=== PATIENT | female | born 1995 | race Caucasian/White ===

== ENCOUNTER 2021-11-14 20:18 | Inpatient (IN) | payer BC, SELFPAY ==
[2021-11-14] VITALS (21 sets, daily range): BP systolic 117–140; BP diastolic 62–84; PULSE 66–109; RESP 16; TEMP 36.8; O2SAT 98; BMI 25.0
[2021-11-14 17:47] LABS: Hematocrit 34.2 % (33.0-51.0); Hemoglobin* 10.9 gm/dL (12.0-16.0); Mean Corpuscular HGB Conc 32 gm/dL (32-36); Mean Corpuscular Hemoglobin 24 pg (26-34); Mean Corpuscular Volume 76 fL (80-100); Platelet Count* 231 K/uL (140-440); Red Blood Count 4.48 m/uL (4.00-5.20); White Blood Count* 8.54 K/uL (4.50-11.00)
[2021-11-14 17:55] LABS: Slide Review Reflex No
[2021-11-14 17:59] LABS: Alanine Aminotransferase* 16 U/L (4-35); Aspartate Amino Transferase* 32 U/L (12-35); Blood Urea Nitrogen* 11 mg/dL (5-24)
[2021-11-14 18:15] LABS: Creatinine* 0.5 mg/dL (0.5-1.5); Estimated Glomerular Filt Rate 132 ml/min
[2021-11-14 18:16] LABS: Creatinine Urine 106.3 mg/dL; Total Protein Urine 8 mg/dL
--- NOTE | 2021-11-14 21:07 | PM.OBHPLI ---
OB - H&P: HPI Labor/Induction History of Present Illness Date Seen: 11/14/21 Chief Complaint: The patient is a 26 year old 3 para 1102 at 38 weeks gestation by 1st trimester US, who presents with elevated blood pressure readings in clinic. Chief complaint: Maternity : 3 Para: 2 Indications for induction: induced hypertension Narrative: Mary Good is a 26 year old female at 38 weeks based on first trimester US dating. Patient has a history of gestational hypertension and preeclampsia with prior pregnancies. she has been on 81 mg asa throughout this and has had normal BP readings until this afternoon. She has had no headaches, no vision changes, no RUQ pain or swelling. History of Present Dating criteria: based on 1st trimester US only care: good care Ultrasounds: normal 1st trimester US complications: gestational hypertension Medical complications: none Labs Blood type: A (-) negative Rubella: immune RPR/VDLR: nonreactive GBS status: positive HBsAG: negative Review of Systems Status of ROS: Reports: 10 or more systems reviewed and unremarkable except as noted in History and below Meds Home Medications and Allergies Home Medication Comments: vitamin Allergies/Adverse Reaction Comments: NKDA OB - H&P: Exam Physical Exam: Vital signs: Pulse BP Pulse Ox 100 128/79 98 11/14/21 20:25 11/14/21 20:25 11/14/21 16:54 Constitutional: Constitutional: no acute distress Routine HEENT Exam: Head: Present atraumatic Eye: Present PERRL Routine Neck Exam: Neck: Present normal inspection Routine Respiratory Exam: Respiratory: Present CTA bilaterally Routine Cardiovascular Exam: Cardiovascular: RRR Routine Abdominal Exam: Comments: Gravid, appropriate for gesational age, Vertex by anastasiya. EFW 7.5 pounds. Detailed Labor and Delivery Exam: Patient Gravid: yes Dilation (cm): 4 Effacement (%): 70 Cervix position: mid Consistency: medium Contraction intensity: Moderate Fetus (Single): Station: -1 Heart Rate Baseline: 150 Monitor Accelerations: Present Senior Graphic Designer Variability: Average (6-10) Routine Neurological Exam: Present alert, oriented X3 and CN II-XII intact Routine Psychiatric Exam: Present normal affect and normal thought process OB - Results Labs Labs: Short CBC 11/14/21 Range/Units 17:30 WBC 8.54 (4.50-11.00) K/uL Hgb 10.9 L (12.0-16.0) gm/dL Hct 34.2 (33.0-51.0) % Plt Count 231 (140-440) K/uL BMP 11/14/21 11/14/21 17:30 17:30 BUN 11 Creatinine 0.5 Liver Function 11/14/21 Range/Units 17:30 AST 32 (12-35) U/L ALT 16 (4-35) U/L OB - Problem Based A/P Additional Plan (1) Gestational [-induced] hypertension without significant proteinuria, third trimester: Status: Acute (2) Term : Status: Acute Plan 1. start Abx for GBS + 2. If continued cervical change, will continue expectant management, otherwise will plan pitocin with AROM once adequate antibiotics.
[2021-11-14] MEDS: AMPICILLIN 2 GM in 0.9 % SODIUM CHLORIDE Mini-bag 100 ML IVPB (21:32)
[2021-11-14] MEDS: LACTATED RINGERS 1000 ML 1,000 ML 125 ML IV (21:32)
[2021-11-14 21:55] LABS: SARS PCR* Negative SARS-CoV-2 (Negative)
[2021-11-15] VITALS (20 sets, daily range): BP systolic 112–147; BP diastolic 55–92; PULSE 62–91; RESP 16; TEMP 36.6–36.9; O2SAT 96–98
[2021-11-15] MEDS: AMPICILLIN 1 GM in 0.9 % SODIUM CHLORIDE Mini-bag 100 ML IVPB (01:31)
--- NOTE | 2021-11-15 03:30 | PM.OBPRCVD ---
Procedure Delivery date: 11/15/21 Procedure Done: Global Procedure Details: Stage 1: Mary is a 26 yo at 38 weeks who presented to clinic with elevated blood pressure readings and a history of preeclampsia in both prior pregnancies. She was observed for 4 hours with 2 additional elevated BP readings, but normal preeclampsia labs. She was rika and made cervical change from 2 cm in clinic at 1600 on 11/14/21 to 5 cm at 0125 11/15/21 when she underwent AROM with clear fluid. She was given IV antibiotics for GBS treatment. At the time of AROM, time her contractions became quite strong and closer together and she entered the birthing tub. She reached 10 cm at 0213 and was involuntarily pushing at 0215. Stage 2: at viable male was born in the OA position over an intact perineum at 0252. There was a loose nuchal cord which was reduced prior to delivery of the shoulders. Mom was unable to continue pushing at this point and shoulders did not deliver spontaneously so the posterior (left) arm was delivered and then infant was placed on mother's abdomen. Because of poor respiratory effort, cord was immediately double clamped and brought to the warmer. IV pitocin was started after delivery of the . Stage 3: An intact placenta with 3 vessel cord was delivered at 0310. There was a 1st degree periurethral tear which did not requiring suturing. EBL 50 mL, sponge counts were correct. Apgars 7 and 9 at 1 and 5 minutes respectively. Events: Gestational Hypertension and Labor Induction Delivery augmentation: rupture of membranes Delivery monitor: external FHT Route of delivery: (in birthing tub) Laceration description: Periurethral - 1st Degree Estimated blood loss (mL): 50 Anesthesia type: None Gender: Male presentation: vertex Placental Delivery Description: Spontaneous Cord Description: 3 Vessels, Nuchal Cord (reduced at perineum), Loose and Reduced
[2021-11-15] MEDS: ACETAMINOPHEN 500 MG TABLET 1000 MG PO ×3 (03:31→19:55)
[2021-11-15] MEDS: IBUPROFEN 600 MG TABLET PO ×3 (09:54→23:16)
[2021-11-15] MEDS: DOCUSATE SODIUM 100 MG CAPSULE PO (09:56)
[2021-11-16 06:41] LABS: Hemoglobin* 10.3 gm/dL (12.0-16.0)
[2021-11-16 08:52] VITALS: BP 127/79; PULSE 79; RESP 16; TEMP 36.5; O2SAT 98
--- NOTE | 2021-11-16 09:26 | P.DS_ITS ---
DS: Providers Provider Time Seen by Provider: 09:26 Date Seen: 11/16/21 Date of admission: 11/14/21 20:18 Primary care physician: Roxy Jules MD Admitting Clinician: Roxy Jules MD Attending Physician on discharge: Roxy Jules MD Date of Discharge: 11/16/21 DS: Diagnosis Discharge Diagnosis (1) Normal vaginal delivery: Status: Acute (2) Gestational [-induced] hypertension without significant proteinuria, third trimester: Status: Acute Exam Narrative: Exam Narrative: General: Well-appearing adult female. Alert oriented appropriate. No acute distress. Head: Normocephalic. Atraumatic HEENT: EOMI. No conjunctival injection. Mucous membranes moist. Neck: Supple. Cardiovascular: Regular rate and rhythm. No rubs, murmurs or extra heart sounds. Pulmonary: Clear to auscultation bilaterally. No wheezes, rales or rhonchi. Abdomen: Soft, nontender. Uterine fundus palpated at the level the umbilicus. No masses or organomegaly. Normoactive bowel sounds. Extremities: Warm and well perfused. No lower extremity edema. No calf tenderness. Skin: No rashes appreciated over exposed skin. Neuro: Grossly normal strength and sensation. No focal deficits. Psych: Normal affect. Const: Vital Signs, click to edit/add: Vital Signs - 24 hr 11/15/21 09:47 11/15/21 12:32 11/15/21 15:58 Temperature 98.3 F 98 F 98.5 F Pulse Rate [Pulse Oximeter] 77 73 Respiratory Rate 16 16 16 Blood Pressure [Le ft Arm] 122/72 127/73 136/92 H Pulse Oximetry 96 97 98 Oxygen Delivery Me thod Room Air Room Air Room Air 11/15/21 20:11 11/15/21 23:10 11/16/21 08:52 Temperature 97.8 F 98.3 F 97.7 F Pulse Rate [Pulse Oximeter] 63 70 79 Respiratory Rate 16 16 16 Blood Pressure [Le ft Arm] 122/78 114/73 127/79 Pulse Oximetry 98 96 98 Oxygen Delivery Me thod Room Air Room Air Room Air OB - DS: Summary Hospital Course Hospital Course: The patient is a 26 year old G 3 P1102 at 38+0 weeks gestation that was admitted to the Center on 11/14/21 for IOL for gestational hypertension. History of pre-eclampsia and gestational hypertension in prior pregnancies. Found to have elevated BP in clinic. Several additional elevated BPs on admission, non severe range. Labs were normal. She had an uncomplicated vaginal delivery. She delivered a viable male infant. She is breast feeding. the patient has done well. Blood pressures have been normal. Peripartum Data delivery method: Vaginal Laceration description: Perineal - 1st Degree (not repaired) complications: none [place] Gender: Male A Gender: Male Discharge Plan: Home Status at Discharge Functional status at discharge: independent ambulation Overall status at discharge: patient is back to baseline Time Spent with Patient Time attestation: Total time spent providing and/or coordinating discharge services: Time spent: Less than 30 minutes Discharge Plan Discharge Disposition: Home, Self-Care Date of Admission: 11/14/21 20:18 Attending Provider on Discharge: Sushma Gmaez Primary Care Provider: Provider,Not a Local Condition: Stable Anticipated Discharge Date/Time: 11/16/21 09:12 Discharge Medications: New acetaminophen 500 mg Tablet 1,000 mg PO Q6H PRN (Reason: pain) Qty: 30 0RF docusate sodium 100 mg Capsule 100 mg PO DAILY Qty: 30 0RF ibuprofen 600 mg Tablet 600 mg PO Q6H PRNQty: 30 0RF Discharge Orders: Discharge Order (Routine); Ordered 11/16/21 Ordered By: Sushma Gamez Patient Education: OB Over the Counter Medication Information, OB Vaginal/Bottle Feeding Activity Level: Activity as Tolerated Discharge Diet: Regular Follow Up Appointments: Provider,Not a Local [Primary Care Provider] - Forms: [facility] [employer] Info Instructions Discharge Comment: Follow-up for 6 weeks pp visit with Dr. Jules
== END 2021-11-16 10:15 | disposition home or self-care (01) | DRG 560 ==
LOC: OB OUT 20:19 → OB 20:19
PROVIDERS: Admitting Provider Family Medicine; Visit Provider Family Medicine
DX: O13.4 Gestational [pregnancy-induced] hypertension without significant proteinuria, complicating childbirth (principal); O99.824 Streptococcus B carrier state complicating childbirth; Z3A.38 38 weeks gestation of pregnancy; O71.82 Other specified trauma to perineum and vulva; Z37.0 Single live birth
CPT/HCPCS: 36415; 82565; 82570; 84156; 84450; 84460; 84520; 85018; 85027; 87635; A9270; J0290; J7120

== ENCOUNTER 2023-09-30 11:22 | Inpatient (IN) | payer BC, SELFPAY ==
[2023-09-30] VITALS (55 sets, daily range): BP systolic 113–155; BP diastolic 55–89; PULSE 68–108; TEMP 36.9; O2SAT 97–98; BMI 24.7
[2023-09-30 11:48] LABS: Hematocrit 37.5 % (33.0-51.0); Hemoglobin* 12.5 gm/dL (12.0-16.0); Mean Corpuscular HGB Conc 33 gm/dL (32-36); Mean Corpuscular Hemoglobin 29 pg (26-34); Mean Corpuscular Volume 85 fL (80-100); Platelet Count* 236 K/uL (140-440); Red Blood Count 4.39 m/uL (4.00-5.20); White Blood Count* 8.45 K/uL (4.50-11.00)
[2023-09-30 11:49] LABS: Slide Review Reflex No
[2023-09-30] MEDS: ACETAMINOPHEN 500 MG TABLET 1000 MG PO ×2 (11:58→23:55)
[2023-09-30] MEDS: guaiFENesin 100 MG/ML CUP PO ×3 (11:58→22:13)
[2023-09-30 12:01] LABS: Creatinine* 0.4 mg/dL (0.5-1.5); Est. Creatinine Clearance* 194.27; Estimated Glomerular Filt Rate 137 ml/min
[2023-09-30 12:02] LABS: Alanine Aminotransferase* 30 U/L (4-35); Aspartate Amino Transferase* 47 U/L (12-35); Blood Urea Nitrogen* 6 mg/dL (5-24)
[2023-09-30 12:03] LABS: Creatinine Urine 59.8 mg/dL; Protein Creatinine Ratio Urine 0.35 (0-0.19); Total Protein Urine 21 mg/dL
--- NOTE | 2023-09-30 13:31 | P.OBHP_ITS ---
OB - H&P: HPI Labor/Induction History of Present Illness Date Seen: 09/30/23 Chief Complaint: The patient is a 28 year old 6 para 211 at 38+1 weeks gestation by 6 week US, who presents for IOL for mild preeclampsia. Chief complaint: Maternity Narrative: Mary Good is a 28 year old at 38+1 weeks by 6 week US who presents for IOL for mild preeclampsia. She has a history of preeclampsia with first 2 pregnancies, gestational HTN with 3rd. She also has chronic migraines which did not respond to magnesium, so has been on labetalol for migraine prophylaxis throughout . She presented to clinic yesterday for routine OB visit and reported a home BP of 140/90, but repeat in clinic was normal. She also had a headache, but unsure if that was related to cough from URI. Pre-e labs completed and were notable for AST of 55 and prot:creat 0.2 (previously both normal). Home BP readings last night adn this morning above 140/90 x2 so decision made for IOL. Her headache is better, she is not having contractions or leaking fluid. She does have left sided rib pain after a particularly bad coughing spell last night. History of Present Dating criteria: based on 1st trimester US only care: none Ultrasounds: normal 1st trimester US and normal mid trimester US complications: preeclampsia Medical complications: other (migraines) Labs Blood type: A (-) negative Rubella: immune RPR/VDLR: nonreactive GBS status: positive HBsAG: negative Review of Systems Status of ROS: Reports: 10 or more systems reviewed and unremarkable except as noted in History and below Meds Home Medications and Allergies Allergies Allergy/AdvReac Type Severity Reaction Status Date / Time No Known Drug Allergies Allergy Verified 11/14/21 21:25 OB - H&P: Exam Physical Exam: Vital signs: Pulse BP 93 128/76 09/30/23 13:30 09/30/23 13:30 Constitutional: Constitutional: no acute distress Routine HEENT Exam: Head: Present atraumatic Eye: Present EOMI and PERRL ENT: Present mucous membranes moist Routine Neck Exam: Neck: Present full ROM Routine Respiratory Exam: Respiratory: Present CTA bilaterally Routine Cardiovascular Exam: Cardiovascular: RRR Routine Abdominal Exam: Comments: Gravid, nontender Detailed Labor and Delivery Exam: Patient Gravid: Yes Dilation (cm): 3 Effacement (%): 50 Cervix position: mid Consistency: medium Cervical ripeness score: 5 Fetus (Single): Station: -3 Amniotic Membrane Status: intact Heart Rate Baseline: 140 Monitor Accelerations: Present Monitor Decelerations: None Rodent Exterminator Variability: Moderate (6-25) Routine Back/Spine/Pelvis Exam: Back/Spine: full ROM Routine Skin Exam: Present intact Routine Neurological Exam: Present alert, oriented X3 and CN II-XII intact Routine Psychiatric Exam: Present normal affect and normal thought process OB - Results Labs Labs: Short CBC 09/30/23 Range/Units 11:40 WBC 8.45 (4.50-11.00) K/uL Hgb 12.5 (12.0-16.0) gm/dL Hct 37.5 (33.0-51.0) % Plt Count 236 (140-440) K/uL BMP 09/30/23 11:40 BUN 6 Creatinine 0.4 L Liver Function 09/30/23 Range/Units 11:40 AST 47 H (12-35) U/L ALT 30 (4-35) U/L OB - Problem Based A/P Additional Plan (1) Term : Status: Acute (2) Preeclampsia: Status: Acute Plan 1. 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 2. Cytotec with AROM once able. 3. Abx for +GBS 4. Scheduled Q6 hour labs to monitor for severe features. 5. Analgesia per patient request. 6. Anticipate . Delivery/Labor/Induction Plan Plan: induction Induction method: per misoprostol protocol
[2023-09-30] MEDS: AMPICILLIN 2 GM in 0.9 % SODIUM CHLORIDE Mini-bag 100 ML IVPB (14:20)
[2023-09-30] MEDS: LACTATED RINGERS 1000 ML 1,000 ML 125 ML IV (14:21)
[2023-09-30] MEDS: miSOPROStoL 25 MCG/0.25 TABLET VAGINAL (14:27)
[2023-09-30 17:24] LABS: Hemoglobin* 12.6 gm/dL (12.0-16.0); Mean Corpuscular HGB Conc 32 gm/dL (32-36); Mean Corpuscular Hemoglobin 28 pg (26-34); Mean Corpuscular Volume 87 fL (80-100); Platelet Count* 223 K/uL (140-440); Red Blood Count 4.51 m/uL (4.00-5.20); White Blood Count* 6.49 K/uL (4.50-11.00)
[2023-09-30 17:29] LABS: Slide Review Reflex No
[2023-09-30 17:36] LABS: Alanine Aminotransferase* 31 U/L (4-35); Aspartate Amino Transferase* 55 U/L (12-35); Blood Urea Nitrogen* 8 mg/dL (5-24); Creatinine* 0.5 mg/dL (0.5-1.5); Est. Creatinine Clearance* 155.42; Estimated Glomerular Filt Rate 130 ml/min
[2023-09-30] MEDS: AMPICILLIN 1 GM in 0.9 % SODIUM CHLORIDE Mini-bag 100 ML IVPB (18:18)
[2023-09-30] MEDS: BUPIVACAINE 0.25% PF 10 ML 10 ML ML EPIDURAL (18:45)
[2023-09-30] MEDS: ROPIVACAINE 0.2% 100 ml 100 ML 12 MG EPIDURAL (19:00)
--- NOTE | 2023-09-30 19:22 | P.ANBPRC_ITS ---
[facility] Medical History (Updated 09/30/23 @ 13:32 by Roxy Jules MD) Term ?Z34.90 - Encounter for supervision of normal , unspecified, unspecified trimester (ICD-10) Migraine ?G43.909 - Migraine, unspecified, not intractable, without status migrainosus (ICD-10) Social History What is your current living situation?: I presently have a place to live Problems where you live: no known problems In the past 12 months, utilities in danger of being shut off: no In past 12 months, lack of transportation kept you from medical appts, meetings, work, or getting things needed for daily living: no In the past 12 mos, have been you worried that your food would run out before you had money to buy more?: never true In the past 12 mos, the food you bought just didn't last and you didn't have mon ey to buy more?: never true Smoking Status: Never smoker How often does anyone, including family, friends and others, physically hurt you : never How often does anyone, including family, friends and others, insult or talk down to you: never How often does anyone, including family, friends and others, threaten you with harm: never How often does anyone, including family, friends and others, scream or curse at you: never Meds Home Medications and Allergies Home Medications ?Medication ?Instructions ?Recorded ?Confirmed ?Type aspirin 81 mg chewable tablet 81 mg PO DAILY 09/30/23 09/30/23 History (Sania Chewable Low Dose Aspirin) labetalol 200 mg tablet 200 mg PO BID 09/30/23 09/30/23 History Allergies Allergy/AdvReac Type Severity Reaction Status Date / Time No Known Drug Allergies Allergy Verified 09/30/23 16:05 Results Labs Labs: Laboratory Results - last 24 hr 09/30/23 09/30/23 11:40 17:15 WBC 8.45 6.49 RBC 4.39 4.51 Hgb 12.5 12.6 Hct 37.5 39.0 MCV 85 87 MCH 29 28 MCHC 33 32 Plt Count 236 223 BUN 6 8 Creatinine 0.4 L 0.5 Estimated Creat Clear 194.27 155.42 Estimated GFR 137 130 AST 47 H 55 H ALT 30 31 Urine Creatinine 59.8 Protein/Creatinin Ratio 0.35 H Urine Total Protein 21 Vital Signs Vital Signs: Last Vital Signs Temp 98.4 F 09/30/23 15:18 Pulse 76 09/30/23 19:21 BP 122/60 09/30/23 19:21 Weight: 69.4 kg Height: 167.64 cm Anesthesia Procedures Epidural Insertion Patient Location: OB Start Time: 18:30 Stop Time: 19:15 Start Date: 09/30/23 Stop Date: 09/30/23 Reason for Block: procedure for pain Patient Position: sitting Performed By: Ariadna Medley Preanesthetic Checklist: IV checked, risks and benefits discussed, monitors and equipment checked, timeout performed and anesthesia consent Prep: chlorhexidine gluconate Monitoring: blood pressure monitoring, continuous pulse oximetry and heart rate Approach: midline Vertebral Space: lumbar (1-5) Epidural Technique: TAN saline Needle Type: Tuohy needle Injection Technique: continuous catheter Needle gauge: 17 Needle Length (cm): 10 cm Needle Insertion Depth (cm): 6 Catheter Gauge: 19 Catheter Type: multi-orifice Catheter at skin depth (cm): 12 Test Dose Result: negative and lidocaine 1.5% with epinephrine 1 to 200,000
--- NOTE | 2023-09-30 19:34 | PM.OBPNL ---
Subjective Date Seen: 09/30/23 Narrative: Mary is a at 38+1 who is undergoing IOL for preeclampsia. She has had one dose of cytotec and contractions are now every 1-4 minutes. She was feeling pelvic pressure as well as ongoing left rib pain from a coughing injury and requested an epidural. she now has good pain relief, is intermittently feeling pelvic pressure with contractions. Objective Vital Signs: Last Vital Signs Temp 98.4 F 09/30/23 15:18 Pulse 85 09/30/23 19:25 BP 124/72 09/30/23 19:25 Pelvic Exam Dilation (cm): 5 Effacement (%): 80 Station: -2 Contractions Monitor mode: External Contraction Frequency: Q2-4 hours Contraction pattern: Regular Contraction intensity: Moderate Assessment Station: -3 Heart Rate Baseline: 140 Monitor Accelerations: Present Monitor Decelerations: None Plan Plan: 1. Patient underwent AROM with clear fluid. Will continue expectant management given good cervical change and good contraction pattern. 2. BP adequately controlled, ALT did increase from 47 to 55, will continue to monitor preeclampsia labs Q6 hours. 3. Epidural for pain control. 4. Anticipate .
[2023-09-30] MEDS: OXYTOCIN 30 unit/500 ML in NS 30 UNIT/500 ML BAG 300 UNIT IVPB (21:35)
--- NOTE | 2023-09-30 21:51 | W.PM.VAGD1_ITS ---
Procedure Delivery date: 09/30/23 Procedure Done: Global Events: Pre-Eclampsia Delivery augmentation: rupture of membranes Delivery monitor: external FHT Route of delivery: Laceration description: None Anesthesia type: Epidural Disposition: floor Narrative: The patient is a 28 year-old admitted on 09/30/2023 at 38 Weeks, 1 Days gestation for preeclampsia.? Cervical exam on admission was 2 cm/50 % effaced/-3 station with membranes intact in vertex presentation.? Contractions were rare.? heart rate demonstrated baseline 140 bpm with moderate variability, + accelerations, - decelerations; a category 1 tracing.?One dose of cytotec was given at 1430. AROM occurred at 1920 with clear fluid. ? Labor Analgesia:? epidural ? Pitocin:? post delivery ? Labor onset:? 1920 ? Complete:? 2056 ? Pushing:? 2099 ? heart tones during second stage were category 1. ? At 2131 a viable female infant delivered in vertex OA presentation over intact perineum via spontaneous vaginal delivery.? was placed on maternal abdomen.? Cord was clamped and cut after a 30-60 second delay.? Nose and mouth were bulb suctioned.? Infant weight pending.? 9 at 1 minute and 9 at 5 minutes.? Shoulder dystocia: no.? Nuchal cord: yes x1 tight. ? Placenta delivered spontaneously and complete at 2137 with a 3 vessel cord. ? Mother and were stable after delivery. ? Lacerations:? none. ? Blood loss: 100 mL. Blood loss measurement type: QBL ? Sponge and needles counts are correct. [place] Infant Infant Gender: Female presentation: vertex Placental Delivery Description: Spontaneous Cord Description: 3 Vessels, Nuchal Cord and Tight
[2023-09-30] MEDS: IBUPROFEN 600 MG TABLET PO (22:53)
[2023-09-30] MEDS: LABETALOL HCL 100 MG TABLET 200 MG PO (22:54)
[2023-09-30 23:39] LABS: Hematocrit 37.5 % (33.0-51.0); Hemoglobin* 12.2 gm/dL (12.0-16.0); Mean Corpuscular HGB Conc 33 gm/dL (32-36); Mean Corpuscular Hemoglobin 28 pg (26-34); Mean Corpuscular Volume 87 fL (80-100); Platelet Count* 223 K/uL (140-440); Red Blood Count 4.33 m/uL (4.00-5.20); White Blood Count* 11.16 K/uL (4.50-11.00)
[2023-09-30 23:40] LABS: Slide Review Reflex No
[2023-10-01 00:08] LABS: Alanine Aminotransferase* 30 U/L (4-35); Aspartate Amino Transferase* 54 U/L (12-35); Blood Urea Nitrogen* 9 mg/dL (5-24); Creatinine* 0.5 mg/dL (0.5-1.5); Est. Creatinine Clearance* 155.42; Estimated Glomerular Filt Rate 130 ml/min
[2023-10-01 01:51] VITALS: BP 112/67; PULSE 82; RESP 16; TEMP 36.7; O2SAT 98
[2023-10-01] MEDS: IBUPROFEN 600 MG TABLET PO ×3 (06:22→18:00)
[2023-10-01] MEDS: guaiFENesin 100 MG/ML CUP PO ×5 (06:22→21:35)
[2023-10-01 06:23] VITALS: BP 118/64; PULSE 69; RESP 16; TEMP 36.6; O2SAT 98
[2023-10-01 06:30] LABS: Hematocrit 35.4 % (33.0-51.0); Hemoglobin* 11.7 gm/dL (12.0-16.0); Mean Corpuscular HGB Conc 33 gm/dL (32-36); Mean Corpuscular Hemoglobin 28 pg (26-34); Mean Corpuscular Volume 86 fL (80-100); Platelet Count* 205 K/uL (140-440); Red Blood Count 4.14 m/uL (4.00-5.20); White Blood Count* 9.24 K/uL (4.50-11.00)
[2023-10-01 06:34] LABS: Slide Review Reflex No
[2023-10-01 06:41] LABS: Alanine Aminotransferase* 27 U/L (4-35); Aspartate Amino Transferase* 46 U/L (12-35); Blood Urea Nitrogen* 5 mg/dL (5-24); Creatinine* 0.4 mg/dL (0.5-1.5); Est. Creatinine Clearance* 194.27; Estimated Glomerular Filt Rate 137 ml/min
--- NOTE | 2023-10-01 07:11 | PM.OBPNVD1 ---
OB - PN:Subj Subjective Date Seen: 10/01/23 Narrative: Patient seen today on PP day 0. Doing overall well. Noted headache this morning. Similar to migraine history. Continues to have significant left chest wall/rib pain. Pain under control with ibuprofen. Lochia decreasing. Ambulating. Tolerating diet. Normal urination. going well. Baby doing well. OB - PN: Obj Exam Physical Exam: Vital signs: Temp Pulse Resp BP Pulse Ox O2 Del Method 97.9 F 69 16 118/64 98 Room Air 10/01/23 06:23 10/01/23 06:23 10/01/23 06:23 10/01/23 06:23 10/01/23 06:23 10/01/23 06:23 Narrative: Gen: NAD Ext: Warm, dry Mood: Appropriate OB - PN: Obj Data Labs Labs: Laboratory Results - last 24 hr 09/30/23 09/30/23 09/30/23 11:40 17:15 23:30 WBC 8.45 6.49 11.16 H RBC 4.39 4.51 4.33 Hgb 12.5 12.6 12.2 Hct 37.5 39.0 37.5 MCV 85 87 87 MCH 29 28 28 MCHC 33 32 33 Plt Count 236 223 223 BUN 6 8 9 Creatinine 0.4 L 0.5 0.5 Estimated Creat Clear 194.27 155.42 155.42 Estimated GFR 137 130 130 AST 47 H 55 H 54 H ALT 30 31 30 Urine Creatinine 59.8 Protein/Creatinin Ratio 0.35 H Urine Total Protein 10/01/23 06:05 WBC 9.24 RBC 4.14 Hgb 11.7 L Hct 35.4 MCV 86 MCH 28 MCHC 33 Plt Count 205 BUN 5 Creatinine 0.4 L Estimated Creat Clear 194.27 Estimated GFR 137 AST 46 H ALT 27 Urine Creatinine Protein/Creatinin Ratio Urine Total Protein OB - PN: A/P Delivery Assessment and Plan (1) Preeclampsia: Problem details: Blood pressures stable, on labetalol. Labs improving. Headache on 09/30 though similar to h/o migraines Status: Acute (2) Normal vaginal delivery: Status: Acute Plan Comments: PPD#0 s/p uncomplicated , doing well. Preeclampsia, not requiring Mg or medications Plan: -- Preeclampsia, monitor blood pressure. Headache present. -- Rib pain, recommend binder and lidocaine patch, may benefit from routine NSAIDs or Tylenol -- Continue current cares. -- Encourage ambulation. -- Take Vitamins while . -- Stool softener prn for constipation prophylaxis. -- Anticipate discharge to home in 1-2 days.
[2023-10-01 07:52] VITALS: BP 115/72; PULSE 62; RESP 16; TEMP 36.8; O2SAT 98
[2023-10-01] MEDS: DOCUSATE SODIUM 100 MG CAPSULE PO (07:57)
[2023-10-01] MEDS: LABETALOL HCL 100 MG TABLET 200 MG PO ×2 (07:57→21:18)
[2023-10-01] MEDS: ACETAMINOPHEN 500 MG TABLET 1000 MG PO ×3 (07:57→21:18)
[2023-10-01] MEDS: LIDOCAINE 5% PATCH 1 PATCH TRANSDERMA (08:23)
[2023-10-01 11:44] LABS: Hematocrit 34.7 % (33.0-51.0); Hemoglobin* 11.5 gm/dL (12.0-16.0); Mean Corpuscular HGB Conc 33 gm/dL (32-36); Mean Corpuscular Hemoglobin 29 pg (26-34); Mean Corpuscular Volume 86 fL (80-100); Platelet Count* 198 K/uL (140-440); Red Blood Count 4.02 m/uL (4.00-5.20); White Blood Count* 8.04 K/uL (4.50-11.00)
[2023-10-01 11:49] LABS: Slide Review Reflex No
[2023-10-01 11:59] LABS: Alanine Aminotransferase* 28 U/L (4-35); Aspartate Amino Transferase* 45 U/L (12-35); Creatinine* 0.5 mg/dL (0.5-1.5); Est. Creatinine Clearance* 155.42; Estimated Glomerular Filt Rate 130 ml/min
[2023-10-01 12:00] LABS: Blood Urea Nitrogen* 5 mg/dL (5-24)
--- NOTE | 2023-10-01 13:00 | PM.ANPOST ---
Post Anesthesia Note Post Anesthesia Note Patient seen: Inpatient Respiratory Status: adequate Cardiovascular Status: adequate Mental Status: baseline Pain: adequate Temp: baseline Anesthetic awareness: N/A Complications: none Follow care: none
[2023-10-01 13:23] VITALS: BP 108/66; PULSE 75; RESP 16; TEMP 36.3; O2SAT 98
[2023-10-01 17:08] VITALS: BP 111/71; PULSE 72; RESP 16; TEMP 36.6; O2SAT 98
[2023-10-01 21:11] VITALS: BP 116/73; PULSE 70; RESP 18; TEMP 36.6; O2SAT 97
[2023-10-01] MEDS: OXYCODONE 5 MG TABLET PO (21:40)
[2023-10-01] MEDS: SODIUM CHLORIDE 0.9 % (FLUSH) 10 ML SYRINGE IVF (22:44)
[2023-10-01] MEDS: ONDANSETRON 2 MG/ML inj 4 MG IV (22:44)
[2023-10-02 01:04] VITALS: BP 124/74; PULSE 59; RESP 20; O2SAT 98
[2023-10-02] MEDS: guaiFENesin 100 MG/ML CUP PO ×4 (01:06→17:05)
[2023-10-02] MEDS: IBUPROFEN 600 MG TABLET PO ×3 (01:07→15:47)
[2023-10-02] MEDS: OXYCODONE 5 MG TABLET PO (01:07)
[2023-10-02] MEDS: ONDANSETRON 2 MG/ML inj 4 MG IV ×2 (01:56→08:45)
[2023-10-02 06:01] VITALS: BP 108/66; PULSE 66; RESP 18; TEMP 36.4; O2SAT 96
[2023-10-02] MEDS: ACETAMINOPHEN 500 MG TABLET 1000 MG PO ×2 (06:04→14:01)
[2023-10-02 08:27] VITALS: BP 120/78
[2023-10-02] MEDS: DOCUSATE SODIUM 100 MG CAPSULE PO (08:28)
[2023-10-02] MEDS: LABETALOL HCL 100 MG TABLET 200 MG PO (08:29)
[2023-10-02] MEDS: LIDOCAINE 5% PATCH 1 PATCH TRANSDERMA (08:43)
--- NOTE | 2023-10-02 08:45 | PM.OBDSVD1 ---
DS: Providers Provider Date Seen: 10/02/23 Date of admission: 09/30/23 11:22 Primary care physician: Roxy Jules MD Admitting Clinician: Roxy Jules MD Attending Physician on discharge: Roxy Jules MD Exam Narrative: Exam Narrative: Gen: No acute distress CV: Regular rate and rhythm, normal S1,S2, no murmurs Resp: Normal rate and effort, clear to auscultation bilaterally, shallow breaths. MSK: Left lower ribs tender on light exam Ext: Warm, dry, 2+ pedal pulses, mild edema bilaterally. Calves non-tender to palpation. Const: Vital Signs, click to edit/add: Vital Signs - 24 hr 10/01/23 13:23 10/01/23 17:08 10/01/23 21:11 Temperature 97.4 F L 97.9 F 97.9 F Pulse Rate [Left B lood Pressure Cuff ] 75 72 70 Respiratory Rate 16 16 18 Blood Pressure [Le ft Arm] 108/66 111/71 116/73 Pulse Oximetry 98 98 97 Oxygen Delivery Me thod Room Air Room Air Room Air 10/02/23 01:04 10/02/23 06:01 10/02/23 08:27 Temperature 97.6 F Pulse Rate [Left B lood Pressure Cuff ] 59 L 66 Respiratory Rate 20 18 Blood Pressure [Le ft Arm] 124/74 108/66 120/78 Pulse Oximetry 98 96 Oxygen Delivery Me thod Room Air Room Air OB - DS: Summary Hospital Course Hospital Course: The patient is a 28 year-old admitted on 09/30/2023 at 38 Weeks, 1 Days gestation for preeclampsia.? She had an uncomplicated vaginal delivery. She delivered a viable female infant. She is breast feeding. Blood pressures have been normal . She is on labetalol and did not receive magnesium during her hospitalization. has been complicated by rib pain secondary to a recent viral URI. XR performed on 10/01 to rule out pneumonia. She will be discharged with pain plan to include twice daily naproxen, tylenol every 6 hours, and flexeril as needed. She can use OTC Salonpas, compression wraps, ice/heat. She was provided with an incentive spirometer to prevent atelectasis. Discussed that rib injuries can take several weeks to heal. Peripartum Data delivery method: Vaginal [place] Gender: Female Status at Discharge Functional status at discharge: independent ambulation Overall status at discharge: patient is progressing back to baseline Time Spent with Patient Time attestation: Total time spent providing and/or coordinating discharge services: Discharge Plan Discharge Disposition: Home, Self-Care Date of Admission: 09/30/23 11:22 Primary Care Provider: Roxy Jules Condition: Stable Anticipated Discharge Date/Time: 10/02/23 12:00 Discharge Medications: New naproxen 500 mg tablet 500 mg PO BID Qty: 28 2RF Rx Instructions: Take twice daily for 1 week, then can take as needed. cyclobenzaprine 5 mg tablet 5 mg PO TID PRN (Reason: muscle spasm) Qty: 14 1RF Continued labetalol 200 mg tablet 200 mg PO BID acetaminophen 500 mg Tablet 1,000 mg PO Q6H PRN (Reason: pain) Qty: 30 0RF Discontinued aspirin [Sania Chewable Aspirin] 81 mg tablet,chewable 81 mg PO DAILY ibuprofen 600 mg Tablet 600 mg PO Q6H PRNQty: 30 0RF Discharge Orders: Discharge Order (Routine); Ordered 10/02/23 Ordered By: Licha Swenson Patient Education: Preeclampsia During (DC), OB Care, OB Over the Counter Medication Information, OB Vaginal/Breast Feeding Additional Instructions: Rib pain plan: Recommend naproxen 500mg twice daily for 1-2 weeks; tylenol 1000mg every 6 hours for 1-2 weeks and flexeril 5mg three times daily as needed. Flexeril may make you sleepy but can help relax the muscles. Incentive spirometry with every feed to help prevent atelectasis and pneumonia. This helps to expand your lungs. Ok to use honey, cough drops and Robitussin while . Other cough suppressants can decrease milk supply and Tessalon can be dangerous. Jtca-qtl-brbydnu lidocaine patches like Salonpas may be helpful. You can try wearing a binder. Follow-up in 2-3 weeks as you may benefit from physical therapy. Activity Level: Activity as Tolerated Follow Up Appointments: Roxy Jules MD [Primary Care Provider] - Forms: [employer] Info Instructions DS:Data Additional Comments Additional comments: - Preeclampsia. Monitor blood pressures at home. Return to center if blood pressure >160/110 or develop a new headache, edema or RUQ pain. - Rib pain. Recommend naproxen 500mg twice daily, tylenol 1000mg every 6 hours and flexeril 5mg TID as needed. Incentive spirometry. Ok to use honey, cough drops and Robitussin while . Other cough suppressants can decrease milk supply and Tessalon can be dangerous. - Pelvic rest for 6 weeks (no intercourse, tampons or douching), or until one week after vaginal bleeding stops. - Daily activities for the first week should be limited to taking care of patient and her baby, and only as tolerated. - Call MD if fever > 100.4 degrees, bleeding more than 1 pad / hour, foul-smelling discharge, passage of golf-ball sized blood clots, or worsening of pain not controlled by medications. - Counseled on signs of post- depression
--- NOTE | 2023-10-02 09:14 | CRLHL7_ITS ---
For Patients: As a result of the Cures Act, medical imaging exams and procedure reports are released immediately into your electronic medical record. You may view this report before your referring provider. If you have questions, please contact your health care provider. INDICATION: Rib pain, recent URI TECHNIQUE: Chest 2 views. COMPARISON: None. FINDINGS: The heart is normal in size. The pulmonary vasculature is within normal limits. The lungs are clear without focal consolidation, pleural effusion or pneumothorax. There is questionable cortical step-off of a lateral left rib, approximate 9th rib. IMPRESSION: Questioned cortical step-off of the lateral approximate left 9th rib. Recommend correlation with point tenderness to exclude fracture. Otherwise no acute cardiopulmonary process. Dictated by Rosana Lovett MD @ 10/02/2023 9:56:36 AM (Electronically Signed)
[2023-10-02 10:54] VITALS: BP 115/70; PULSE 72; RESP 16; TEMP 36.6; O2SAT 96
[2023-10-02 15:08] VITALS: BP 113/68; PULSE 83; RESP 16; TEMP 36.9; O2SAT 96
[2023-10-02 22:01] LABS: Rapid Plasma Reagin (RPR) Non Reactive (Non Reactive)
== END 2023-10-02 18:15 | disposition home or self-care (01) | DRG 560 ==
PROVIDERS: Admitting Provider Family Medicine; PCP Family Medicine; Visit Provider Family Medicine
DX: O14.04 Mild to moderate pre-eclampsia, complicating childbirth (principal); O26.893 Other specified pregnancy related conditions, third trimester; Z67.11 Type A blood, Rh negative; O99.824 Streptococcus B carrier state complicating childbirth; G43.909 Migraine, unspecified, not intractable, without status migrainosus; O99.52 Diseases of the respiratory system complicating childbirth; R07.81 Pleurodynia; J06.9 Acute upper respiratory infection, unspecified; Z3A.38 38 weeks gestation of pregnancy; Z37.0 Single live birth
CPT/HCPCS: 01967; 36415; 71046; 82565; 82570; 84156; 84450; 84460; 84520; 85018; 85025; 85027; 85461; 86592; 88307; A9270; J0290; J0665; J2371; J2405; J2791; J2795; J7120

== ENCOUNTER 2023-11-29 12:55 | Outpatient (CLI) | payer BC, SELFPAY ==
--- NOTE | 2023-11-29 14:07 | P.LACCB_ITS ---
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 Delivery Information Weight: 3.515 kg Baby's Information Baby's Age at Visit: 2 months Baby's Provider or Clinic: [facility] Jaundice: No Reason for Consult Reason for Consult: mom with very sore nipples, milk bleb or blister bilaterally, on and off for 6 weeks now Past Experience Past Experience: Yes Current Frequency of Day Feedings: every 3 hours Frequency of Night Feedings: one 8 hour stretch Both Breasts: No Suck: strong, clicky Latch: mom not sure if deep enough Length of Time: 20-30 minutes, usually just one side, uses [place] on 2nd side, gets 2-4 oz Goals: at least 1 year Pumping Pumping: Yes Quantity Pumped: 2-4 oz/session Supplementing EMB Supplement: No Formula Supplement: No Baby Elimination Number of Wet Diapers a Day: 6+ Number of BM a Day: 4-6/day Breast/Nipple Condition Breast Information: Breasts WNL, symmetrical and rounded. Intramammary distance <1.5 inches. Nipples are supple and without retraction; small 1mm blebs noted bilaterally. On the right nipple, at approx the 8 o'clock position, on the left nipple, approx the 4 o'clocl position. Mom reports feeling full before nursing and breast softening after nursing session. Engorgement: No Maternal Nipple Condition - Left: Common Nipple Maternal Nipple Condition - Right: Common Nipple Sore Nipples: Yes (pain comes and goes throughout the feeding) Interventions for Sore Nipples: Lansinoh Onsite Post-Feed weight: 4.674 kg Pre-Nursing Left Nipple: Within Normal Limits (except as noted above) Pre-Nursing Right Nipple: Within Normal Limits (except as noted above) Post-Nursing Left Nipple: Within Normal Limits Post-Nursing Right Nipple: Within Normal Limits Assessments/Interventions Assessments/Interventions: Milk bleb/blister with concurrent yeast (being treated for 3 days now) observation: Baby latches to the breast easily, but nibbles up mom's nipple vs. getting a wide mouth and latching to the breast. Currently not a painful latch (mom says the pain comes and goes), but also reports the smacking sounds are pretty typical, especially over the last few weeks. Worked with mom to relatch baby with a wider, deeper latch; mom reports it is more comfortable and baby has less smacking sounds; needs to be relatched mulitple times throuh the feeding as she slides to the end of the nipple. After feeding, the bleb is quite inflamed and rouneded filled with milk. Of note: baby started treatment for thrush on 11/26/23; mom started treatment with Nystatin on the same day per her provider. Intervention plan: Continue with feeding plan; recommend getting baby to each breast ea feeding for best milk removal over pump. Work on wider, deeper latch for more effective removal and to move milk bleb. Handout given on milk bleb treatment and reviewed with mom-especially noted epsom salt soak, coconut oil to bleb, soy lecithin to help unplug ducts. Avoid unroofing bleb since been present for awhile, allow to open naturally with Recommend not going a full 8 hours between feedings during treatment phase; perhaps hand express or pump about 1/2-1oz off each breast before mom goes to bed since baby is sleeping longer. Mom to reach back to IBCLC if no improvement within 1 week. Time spent reviewing chart and face to face with mom and baby: 60 minutes Meds Home Medications and Allergies Home Medications ?Medication ?Instructions ?Recorded ?Confirmed ?Type labetalol 200 mg tablet 200 mg PO BID 09/30/23 09/30/23 History Allergies Allergy/AdvReac Type Severity Reaction Status Date / Time No Known Drug Allergies Allergy Verified 09/30/23 16:05
== END 2023-11-29 12:56 | disposition home or self-care (01) ==
LOC: OB LAC 12:55
PROVIDERS: PCP Family Medicine; Visit Provider Obstetrics & Gynecology
DX: Z39.1 Encounter for care and examination of lactating mother (principal)
CPT/HCPCS: G0463

== ENCOUNTER 2024-05-12 15:27 | Emergency (ER) | payer BC, SELFPAY ==
--- OUTSIDE RECORDS SUMMARY | 2024-05-12 15:30 | XMS_ITS | Continuity of Care Document ---
Author Organization [facility] Address [address] [place] [address] Phone Care Team Providers Care Coil Inspector Name Role Phone Bettie Fofana DO Unavailable Unavailab le Allergies, Adverse Reactions, Alerts Substance Reaction Status Criticality No Known Allergies Active No Inform ation Medications Medication Instructions Dosage Effective Dates (start - stop) Status Comments labetalol 200 mg tablet take 1 tablet by oral route 2 times every day 200 MG - Active VITAMINS (unknown strength) Not Available - Active Procedures Procedure Date Office/Outpatient Visit, New Routine Venipuncture Specimen Handling Rbc Sed Rate, Automated CReactive Protein Urinalysis Nonauto W/O Scope Assay Of Desipramine Complete Cbc WAuto Diff Wbc Advance Directives Directive Yes / No Effective Date File Name No Information Encounters Encounter Description Practice Location Reason(s) For Visit Diagnoses Date Provider Providers Copied on Encounter [facility], [address], [place], [address], [place] tel:[phone] [facility], No Information [facility] Alexandre. [address], [place], [address], [place]. tel:[phone] Office/Outpa tient Visit, New [facility], [address], [place], [address], [place] tel:[phone] [facility], Raised antibody titerUrticari a Sep- 4 Sel[facility] Alexandre. [address], [place], [address], [place]. tel:[phone] Referring Provider: Bettie Ortiz [address], [place], [address]. tel:[phone] Family History Family Member Type Diagnosis Age At Onset No Information Payers Payer name Insurance type Covered green party ID Authoralvina garcia(s) [facility] [id number] Social History Type Description Quantity Date Captured Comments Sex Female Smoking Status No Information Chief Complaint And Reason For Visit No Information Reason For Referral Reason For Referral No Information History Of Present Illness Encounter Date Complaint History Of Prese nt Illness No Information Functional Status Date Functional Assessmen t No Information Instructions Date Instruction Additional Infor mation No Information Assessments Type Assessment Date No Information Patient Care Teams Name Effective Dates (start - stop) Status Members No Information
--- OUTSIDE RECORDS SUMMARY | 2024-05-12 15:30 | XMS_ITS | Clinical Summary ---
Author Organization [employer] [facility] Address [place], [place] [address] Care Team Providers Care Glassware Defect Repairer Name Role Phone Roxy Jules MD Primary Care Provider Roxy Jules MD Unavailable [phone] aHlleyannel Yoselyn Coronelle Sabine OFFICE MACHINE REPAIR SHOP SUPERVISOR Unavailable Allergies No known active allergies Medications vit no.124/iron/foli c ( VITAMIN ORAL) Take by mouth. Active labetaloL (TRANDATE) 200 mg tabletIndication s:Hx of migraine headaches Take 1 Tablet (200 mg) by mouth two times daily. 90 Tablet 3 04/07/2023 Active amoxicillin 500 mg tabletIndication s:Acute bacterial otitis media, unspecified laterality Take 1 Tablet (500 mg) by mouth three times daily for 10 days. 30 Tablet 05/12/2024 5 Active fluconazole (DIFLUCAN) 150 mg tabletIndication s:H/O vaginitis Take 1 Tablet (150 mg) by mouth one time for 1 dose. 1 Tablet 05/12/2024 5 Active Active Problems Problem Noted Date Diagnosed Date Pap smear for cervical cancer screening 12/02/19 Overview (12/02/2023): 11/2023 NIL/HPV negative Plan: HPV based testing in 5 years 06/02/2023 Overview (09/28/2023): Estimated Date of Delivery: 10/13/23 based on 6w US Patient's last menstrual period was 10/23/2022. - m/c in Sept Hx of preeclampsia Hx of migraines - on labetalol GBS- Vaginal/Rectal OB Strep B PCR Date Value Ref Range Status 09/15/2023 Positive (A) Final Comment: If susceptibility is needed due to penicillin allergy, contact lab. 28wk labs- GLUCOSE,GESTATIONAL Date Value Ref Range Status 08/02/2023 120 70 - 139 mg/dL Final HEMOGLOBIN Date Value Ref Range Status 08/02/2023 11.7 (L) 12.0 - 16.0 g/dL Final TREPONEMA PALLIDUM Date Value Ref Range Status 08/02/2023 Non-Reactive Non-Reactive Final Last Tdap- 2019- declined booster Last Flu vaccine- 2017 OB Labs: ABORH Date Value Ref Range Status 12/17/2022 A Rh Negative Final ANTIBODY SCREEN Date Value Ref Range Status 12/17/2022 Negative Negative Final TREPONEMA PALLIDUM Date Value Ref Range Status 12/17/2022 Negative Negative Final RUBELLA IGG ANTIBODY Date Value Ref Range Status 02/04/2023 1.55 >=1.00 Index Final INTERPRETATION Date Value Ref Range Status 02/04/2023 Positive Final Comment: Presence of detectable IgG antibodies. A positive result generally indicates exposure to the virus or previous vaccination, but is not an indication of active infection or stage of disease. HBSAG Date Value Ref Range Status 12/17/2022 Nonreactive Nonreactive Final HEPATITIS C ANTIBODY Date Value Ref Range Status 12/17/2022 Non-Reactive Non-Reactive Final Comment: Please note, per www.CDC.gov: If a patient is known to be at high risk of HCV infection, or is symptomatic, and the physician's suspicion of HCV infection is high, HCV RNA testing is often employed and is of diagnostic value, even after an initial negative anti-HCV test result. HIV-1/HIV-2 SCREEN Date Value Ref Range Status 12/17/2022 Non-Reactive Non-Reactive Final Comment: HIV-1 p24 and HIV-1/HIV-2 Ab Not Detected. VARICELLA ZOSTER IGG ANTIBODY Date Value Ref Range Status 04/17/2021 36.5 (L) >=165.0 INDEX Final HEMOGLOBIN Date Value Ref Range Status 02/04/2023 12.5 12.0 - 16.0 g/dL Final PLATELET COUNT Date Value Ref Range Status 02/04/2023 378 140 - 440 thou/cu mm Final CHLAMYDIA PROBE Date Value Ref Range Status 02/18/2023 Negative Final N GONORRHOEAE PROBE Date Value Ref Range Status 02/18/2023 Negative Final No Known Allergies OB History Para Term AB Living 6 3 2 1 1 3 SAB IAB Ectopic Multiple Live Births 1 0 0 0 3 # Outcome Date GA Lbr Delmer/2nd Weight Sex Delivery Anes PTL Lv 6 Current 5 Term 11/15/21 38w1d 03:00 3.57 kg (7 lb 14 oz) M Waterbirth NONE N BERTHA Name: Kermit Mathis Apgar1: 7 Apgar5: 9 4 SAB 01/2021 3 Term 03/25/20 F VAGINAL PAVITHRA BERTHA Complications: Pre-eclampsia Name: Kinza 2 12/20/18 F VAGINAL PAVITHRA BERTHA Complications: Severe pre-eclampsia Name: Viktoriya 1 Past Medical History: . Date GBS (group B Streptococcus carrier), +RV culture, currently Hx of preeclampsia, prior , currently Migraine headache Premature of 27 weeks gestation Prior complicated by PIH, antepartum, unspecified trimester Pyelonephritis Rh incompatibility Past Surgical History: . Laterality Date VAGINAL DELIVERY 2018 x2 VAGINAL DELIVERY 2019 WISDOM TEETH EXTRACTION 2017 Problems (from 03/10/23 to present) Problem Noted Resolved 06/02/2023 by Leticia Lozano, RN No Leticia Lozano RN ....06/02/2023 12:59 PM Resolved Problems Problem Noted Date Diagnosed Date Resolved Date High-risk in first trimester 05/16/2021 05/04/2022 01/06/2021 05/04/2022 Overview (10/20/2021): Estimated Date of Delivery: 08/27/21 Patient's last menstrual period was 11/20/2020 (exact date). Last Tdap- 02/20/2020 Last Flu vaccine- 02/28/2018 Glucose (GTT) result- Component Latest Ref Rng & Units 08/06/2021 HEMOGLOBIN 12.0 - 16.0 g/dL 11.1 (L) MCV 80 - 100 fL 85 GLUCOSE,GESTATIONAL 65 - 140 mg/dL 111 TREPONEMA PALLIDUM Negative Negative 20 week US: Sonographic imaging demonstrates a single living intrauterine gestation. Fetus demonstrates a regular cardiac rate of 144 beats per minute. Fetus has a vertex position. The placenta lies anteriorly without evidence of placenta previa. Amniotic fluid volume appears normal. Single deepest vertical pocket: 3.9 cm. The cervix is closed and measures 3.3 cm in length. The composite ultrasound gestational age is calculated at 20 weeks 5 days with an estimated sonographic due date of 11/23/2021. The estimated weight is 378 grams which lies at the 87th %. The following biometric measurements were obtained: Biparietal diameter: 4.7 cm/20 weeks 2 days 57th% Head circumference: 17.7 cm/20 weeks 2 days 50th% Abdominal circumference: 15.9 cm/21 weeks 0 days 76th% Femur length: 3.4 cm/20 weeks 6 days 70th% No Known Allergies OB History Para Term AB Living 3 2 1 1 0 2 SAB TAB Ectopic Multiple Live Births 0 0 0 0 2 # Outcome Date GA Lbr Delmer/2nd Weight Sex Delivery Anes PTL Lv 3 Current 2 Term F VAGINAL PAVITHRA BERTHA 1 F VAGINAL PAIVTHRA BERTHA Complications: Severe pre-eclampsia Create lab flowsheet for OB labs- Component Latest Ref Rng & Units 04/17/2021 04/17/2021 04/17/2021 8:37 AM 8:37 AM 8:37 AM ABORH A Rh Negative ANTIBODY SCREEN Negative Negative SPECIMEN EXPIRATION DATE/TIME 04/20/21 23:59 VARICELLA ZOSTER IGG ANTIBODY Negative 36.5 (L) RUBELLA IGG ANTIBODY CHLAMYDIA PROBE N GONORRHOEAE PROBE HIV-1/HIV-2 ANTIBODY Non-Reactive Non-Reactive TREPONEMA PALLIDUM Negative Negative HBSAG Nonreactive Nonreactive HEPATITIS C ANTIBODY Non-Reactive Non-Reactive Component Latest Ref Rng & Units 04/17/2021 04/17/2021 04/17/2021 8:37 AM 8:37 AM 8:40 AM ABORH ANTIBODY SCREEN Negative SPECIMEN EXPIRATION DATE/TIME VARICELLA ZOSTER IGG ANTIBODY RUBELLA IGG ANTIBODY Positive 1.66 CHLAMYDIA PROBE Negative N GONORRHOEAE PROBE Negative HIV-1/HIV-2 ANTIBODY Non-Reactive TREPONEMA PALLIDUM Negative HBSAG Nonreactive HEPATITIS C ANTIBODY Non-Reactive Past Medical History: . Date Preeclampsia No past surgical history on file. No data on file. Problems (from 01/01/21 to present) No problems associated with this episode. Kristen Hans RN.....01/06/2021 3:15 PM Encounters Date Type Department Care Team Description 05/12/2024 10:45 AM ADJUNCT PSYCHOLOGY PROFESSOR Office Visit [facility] [address] [place] [address] Paz Leos, CONTINUITY DIRECTOR Fever (Fever, headache, plugged ears, sinus congestion, teeth pain, fatigue, weakness, kidney's hurt -I feel like I'm dehydrated/Recently diagnosed with lupus) 05/12/2024 Travel 05/05/2024 Travel 04/10/2024 3:20 PM ADJUNCT PSYCHOLOGY PROFESSOR Orders Only [facility] [address] [place] [address] Lab 04/09/2024 Travel 03/22/2024 1:00 PM ADJUNCT PSYCHOLOGY PROFESSOR Telemedicine [facility] [address] [place] [phone] Yoselyn Nava, CHRISTOPHER Individual Therapy; Telehealth 03/21/2024 Travel 02/22/2024 Telephone [facility] [address] [place] [phone] Yoselyn Nava, CHRISTOPHER Late Cancel Appointment (02/22/24) from Last 3 Months Immunizations Name Administration Dates Next Due DTaP 09/17/1999, 6,01/27/1995,12/11,1994 HIB PRP-OMP (PedvaxHIB) 10/26/1995,01/27,1994,10/16 Hepatitis A (Peds) 10/06/2006,02/18/2006 Hepatitis B (Peds) 05/21/1995,1994, 995 Human Papilloma Virus Vaccine 04/04/2009, 009,09/25/2008 Inactivated Polio Vaccine 09/17/1999 Influenza, IIV4 02/28/2018 Influenza, IIV4 (=>6mos) MDV 02/12/2017,02/13/20 16,01/30/2015 MENINGOCOCCAL VACCINE 2 VIAL 2MO-55YO (MENVEO) 10/21/2010 MMR 09/17/1999,10/26/1995 Meningococcal Vaccine (Menactra) 09/25/2008 Tdap 02/20/2020, 9,11/05/2016,10/06 Varicella Vaccine 10/06/2006,10/26/1995 Family History Medical History Relation Name Comments Allergies Daughter 1 peanut Good Health Daughter 1 Good Health Daughter 2 No Known Problems Father Lung cancer Maternal Grandmother Non-smo ker No Known Problems Mother Heart Disease Paternal Grandfather Cancer-breast Paternal Grandmother No Known Problems Sister Good Health Son Relation Name Status Comments Daughter 1 Daughter 2 Father Alive Maternal Grandfather Maternal Grandmother Alive Mother Alive Paternal Grandfather Paternal Grandmother Sister Alive Son Social History Tobacco Use Types Packs/Day Years Used Date Smoking Tobacco: Never Passive Smoke Exposure: Never Smokeless Tobacco: Never Tobacco Cessation:Counseling Given: Not Answered Alcohol Use Standard Drinks/Week Comments Not Currently 0 (1 standard drink = 0.6 oz pur e alcohol) PHQ-2 Answer Date Recorded PHQ-2 TOTAL SCORE 0 03/21/2024 Social Connections Answer Date Recorded Do you often feel lonely or isolated from those around you? 0 06/01/2023 Financial Resource Strain Answer Date R ecorded Difficulty of Paying Living Expenses 3 06/01/2023 Difficulty of Paying Living Expenses Not on file 06/01/2023 Food Insecurity Answer Date Recorded Do you worry your food will run out before you are able to buy more? 1 06/01/2023 Transportation Needs Answer Date Record ed Does lack of transportation keep you from medica l appointments? 1 06/01/2023 Does lack of transportation keep you from work, meetings or getting things that you need? 1 06/01/2023 Housing Stability Answer Date Recorded What is your housing situation today? 1 06/01/2023 Utilities Answer Date Recorded Do you have trouble paying f or utilities (for example, heat, electricity, water, phone)? 1 06/01/2023 Comments No Sex and Gender Information Value Date Recorded Sex Assigned at Not on file Legal Sex Female 5:35 AM ADJUNCT PSYCHOLOGY PROFESSOR Gender Identity Female 01/13/2021 7:59 AM CDT Sexual Orientation Not on file Obstetrics History Para Term AB IAB SAB Ectopic Multiple Livin g Live Births 5 4 3 1 1 0 1 0 4 4 Date Outcome GA Total Labor Labor/2nd/3rd Weight Sex Type Anes PTL Bertha A1 A5 Name Clin 2018 F VAGINA L PAVITHRA Livin g Viktoriya Complications:Severe pre-ecl ampsia 2019 Term F VAGINA L PAVITHRA Livin g Kinza Complications:Pre-eclampsia SAB 2021 Term 38w 1d 3h 00m/ 3.57 kg (7 lb 14 oz) M Waterb irth None N Livin g 7 9 Valeriy as Thad Garcia MD Delivery Location:[facility] 2023 Term 38w 1d F VAGINA L PAVITHRA Liv[place] g [place] Last Filed Vital Signs Vital Sign Reading Time Taken Comments Blood Pressure 112/64 05/12/2024 10:18 AM ADJUNCT PSYCHOLOGY PROFESSOR Pulse 110 05/12/2024 10:18 AM ADJUNCT PSYCHOLOGY PROFESSOR Temperature 37.5 C (99.5 F) 05/12/2024 10:18 AM ADJUNCT PSYCHOLOGY PROFESSOR Respiratory Rate 16 05/12/2024 10:18 AM ADJUNCT PSYCHOLOGY PROFESSOR Oxygen Saturation 98% 05/12/2024 10:18 AM ADJUNCT PSYCHOLOGY PROFESSOR Inhaled Oxygen Concentration - - Weight 54 kg (119 lb) 05/12/2024 10:18 AM ADJUNCT PSYCHOLOGY PROFESSOR Height 168.9 cm (5' 6.5) 11/16/2022 7:01 AM CDT Body Mass Index 18.92 11/16/2022 7:01 AM CDT Plan of Treatment Upcoming Encounters Date Type Department Care Team (Late st Contact Info) Description 05/17/2024 2:00 PM ADJUNCT PSYCHOLOGY PROFESSOR Orders Only [facility] [address] [place] [address] Lab, [facility] 05/24/2024 1:00 PM ADJUNCT PSYCHOLOGY PROFESSOR Telemedicine [facility] [address] [place] [phone] Yoselyn Nava, [facility] [address] [place], [place] [phone] Health Maintenance Due Date Last Done Comments BMI (ht and wt on same day) for age 18+ 11/17/2023 11/16/2022, 01/01/2022, 05/16/2021 COVID-19 vaccine series ( season) 2023 Influenza for age 9-49 12/12/2023 8, 02/12/2017, 02/13/2016, Additional history exists Depression screening for age 12+ 03/22/2025 03/22/2024, 03/21/2024, 01/10/2024, Additional history exists Pap test for age 21-65 11/23/2028 , 11/24/2023, 05/23/2020 Tetanus booster 02/19/2030 02/20/2020, 10/10, 11/05/2016, Additional history exists Tdap Completed 02/20/2020, 10/10, 11/05/2016, Additional history exists HIV for age 15-65 Completed 12/17/2022, , 01/07/2021 Hepatitis C screening for age 18-79 Completed 12/17/2022, 04/17/2021, 01/07/2021 Pneumococcal series for age 6-49 Aged Out No longer eligible based on patient's age to complete this topic Procedures Procedure Name Priority Date/Time Associated Diagnosis Comments HPV HIGH RISK Routine 11/24/2023 9:45 AM CDT Screening for cervical cancer ANTI HIV 1/2 Routine 12/17/2022 10:58 AM CDT Encounter for supervision of other normal in first trimester ANTI HCV Routine 12/17/2022 10:58 AM CDT Encounter for supervision of other normal in first trimester from Last 3 Months or Most Recently Relevant to Health Maintenance Results * HPV HIGH RISK (11/24/2023 9:45 AM CDT) TYPE 16 Negative Negative 11/29/2023 4:41 PM CDT [facility] TYPE 18 Negative Negative 11/29/2023 4:41 PM CDT [facility] OTHER HIGH RISK TYPES Negative Negative 11/29/2023 4:41 PM CDT [facility] Other (Cervical) Non-Blood / Unknown 11/24/2023 9:45 AM CDT 11/24/2023 3:57 PM CDT Narrative [facility] - 11/29/2023 4:41 PM CDT HPV types 16, 18, 31, 33, 35, 39, 45, 51, 52, 56, 58, 59, 66 and 68 DNA were undetectable or below the pre-set threshold. Methodology: Christian Alysha 4800 HPV Test Roxy Jules MD MICROBIOLOGY Final R esult [facility] [address] [place] [address], * ANTI HCV (12/17/2022 10:58 AM CDT) Pathologist [facility] HEPATITIS C ANTIBODY Non-Reacti ve Non-React christine 12/18/2022 12:42 PM CDT [facility] Comment:Please note, per www .CDC.gov: If a patient is known to be at high risk of HCV infection, or is symptomatic, and the physician's suspicion of HCV infection is high, HCV RNA testing is often employed and is of diagnostic value, even after an initial negative anti-HCV test result. Blood BLOOD SPECIMEN / Unknown Venipuncture / Unknown 12/17/2022 10:58 AM CDT 12/17/2022 10:59 AM CDT Roxy Jules MD SEND OUTS Final R esult [facility] SENDOUT INTERNAL ZIP [address] [place] [id number] * ANTI HIV 1/2 (12/17/2022 10:58 AM CDT) HIV-1/HIV-2 SCREEN Non-Reacti ve Non-Reacti ve 12/18/2022 2:27 PM CDT [facility] Comment:HIV-1 p24 and HIV-1/ HIV-2 Ab Not Detected. Blood BLOOD SPECIMEN / Unknown Venipuncture / Unknown 12/17/2022 10:58 AM CDT 12/17/2022 10:59 AM CDT us Roxy Jules MD SEND OUTS Final R esult [facility] [address] [place] [address], [place] from Last 3 Months or Most Recently Relevant to Health Maintenance Additional Health Concerns Infection Onset Date Last Indicated Rule-Out COVID-19 05/12/2024 05/12/2024 Insurance Care Teams Glassware Defect Repairer Relationship Specialty Start Date End Date Roxy Jules MD [address] [place] [address] PCP - General Family Practice 09/28/23 Roxy Jules MD [address] [place] [address] Family Practice 09/28/23 Yoselyn Nava, [facility] [address] [address] Psychology 03/22/24
[2024-05-12 15:39] VITALS: BP 120/71; PULSE 117; RESP 18; TEMP 38.2; O2SAT 97; BMI 19.8
--- NOTE | 2024-05-12 16:09 | ED.GENADULT ---
HPI - General Adult General Date Seen: 05/12/24 Chief complaint: Fever Stated complaint: Fever, congestion, cough Time Seen by Provider: 05/12/24 16:01 History of Present Illness HPI narrative: Patient is a 28-year-old young woman here for evaluation of fever, headache, cough, sore throat and body aches for about 4 days. She says she was seen at the [facility] this morning and diagnosed with an ear infection and sinus infection, prescribed amoxicillin. She was recently diagnosed with lupus, is not on any medications for that. She says she was told this morning that she could have kidney problems and if she had any more fevers she should be seen in the ER. She has continued to have fevers this afternoon, last Tylenol was at about 130. A viral swab was not done in clinic. She notes bilateral ?kidney pain without urinary symptoms. Related Data Previous Rx's ?Medication ?Instructions ?Recorded acetaminophen 500 mg tablet 1,000 mg (2 x 500 mg) PO Q6H PRN 11/16/21 pain #30 tabs naproxen 500 mg tablet 500 mg PO BID #28 tabs 10/02/23 Allergies Allergy/AdvReac Type Severity Reaction Status Date / Time No Known Drug Allergies Allergy Verified 05/12/24 15:45 Review of Systems Status of ROS: Reports: 10 or more systems reviewed and unremarkable except as noted in History and below [facility] Medical History Term ?Z34.90 - Encounter for supervision of normal , unspecified, unspecified trimester (ICD-10) Migraine ?G43.909 - Migraine, unspecified, not intractable, without status migrainosus (ICD-10) Social History What is your current living situation?: I presently have a place to live Problems where you live: no known problems In the past 12 months, utilities in danger of being shut off: no In past 12 months, lack of transportation kept you from medical appts, meetings, work, or getting things needed for daily living: no In the past 12 mos, have been you worried that your food would run out before you had money to buy more?: never true In the past 12 mos, the food you bought just didn't last and you didn't have money to buy more?: never true Smoking Status: Never smoker Second hand tobacco smoke exposure: No How often do you have a drink containing alcohol: monthly or less How often do you have six or more drinks on one occasion: Never AUDIT-C Alcohol total score: 1 Non-prescribed substance use: denies use How often does anyone, including family, friends and others, physically hurt you: never How often does anyone, including family, friends and others, insult or talk down to you: never How often does anyone, including family, friends and others, threaten you with harm: never How often does anyone, including family, friends and others, scream or curse at you: never Exam Narrative: Exam Narrative: Vital signs reviewed In general, alert, nontoxic young woman. She looks fatigued, breathing easily. Head: Normocephalic, atraumatic. Eyes: Sclera clear. Pupils equal and reactive. ENT: Mucous membranes moist. Throat normal. Left TM is normal. The right is completely occluded by cerumen. Neck: Supple without adenopathy. Heart: Regular rate and rhythm without murmur. Lungs: Clear. No increased work of breathing, crackles or wheezes. Abdomen: Soft, nontender to palpation. No CVA tenderness. Extremities: Well perfused, pulses intact. No significant edema. Neurologic: Alert, conversant. Speech fluent, face symmetric. Moves all extremities equally. Skin: Warm, dry well perfused. Affect: Normal. Const: Vital Signs, click to edit/add: Vital Signs - 24 hr 05/12/24 15:39 05/12/24 17:26 Temperature 100.7 F H Pulse Rate [Right Pulse Oximeter] 117 H 100 Respiratory Rate 18 14 Blood Pressure [Ri ght Upper Arm] 120/71 109/64 Pulse Oximetry 97 96 Oxygen Delivery Me thod Room Air Room Air Course Course ED Course: Overall, presentation is most consistent with influenza, viral swab is pending. Will check UA make sure there is no signs of infection or significant hematuria or proteinuria. Metabolic panel and CBC, will check her kidney function and make sure she does not have a significantly elevated white blood cell count. She somewhat tachycardic here, she is febrile also with a temp of a 100.7?. Will give her some ibuprofen. She feels like she has not been keeping up on fluids so will give her some IV fluids here as well. Discussed with her based on her symptoms and exam, I do not think she likely has an ear infection or sinus infection. Certainly cannot determine that she has an ear infection based on exam. I do not think there is a clear indication here for antibiotics at this time. Labs are notable for a normal white blood cell count, UA shows 4+ ketones and her metabolic panel shows a CO2 of 16 and a gap of 18. I think this suggest that she has fairly dry. She had the L and half of normal saline here. Her kidney function however is normal. Her influenza is positive. Reviewed with her that I would not recommend starting the antibiotics that were prescribed earlier today as I do not see any indication of a bacterial infection. I think symptoms are related to influenza. Apparently both of her children have now tested positive for influenza as well. Recommend symptomatic care with ibuprofen or Tylenol for fever, body aches etcetera. Make sure to continue to work on hydration at home. Return to the ER for worsening or new symptoms such as difficulty breathing, uncontrolled vomiting etcetera. Primary care follow-up if not improving over the next 7-10 days. Vital Signs Vital signs: Initial Vital Signs Temperature 100.7 F H 05/12/24 15:39 Temperature Source Temporal Artery Scan 05/12/24 15:39 Pulse Rate 117 H 05/12/24 15:39 Pulse Rhythm Regular 05/12/24 15:39 Pulse Strength 3+ Normal 05/12/24 15:39 Respiratory Rate 18 05/12/24 15:39 Blood Pressure 120/71 05/12/24 15:39 Blood Pressure Mean 87 05/12/24 15:39 Pulse Oximetry 97 05/12/24 15:39 Oxygen Delivery Method Room Air 05/12/24 15:39 Vital Signs Temperature 100.7 F H 05/12/24 15:39 Pulse Rate 117 H 05/12/24 15:39 Respiratory Rate 18 05/12/24 15:39 Blood Pressure 120/71 05/12/24 15:39 Pulse Oximetry 97 05/12/24 15:39 Oxygen Delivery Method Room Air 05/12/24 15:39 Temperature 100.7 F H 05/12/24 15:39 Pulse Rate 100 05/12/24 17:26 Respiratory Rate 14 05/12/24 17:26 Blood Pressure 109/64 05/12/24 17:26 Pulse Oximetry 96 05/12/24 17:26 Oxygen Delivery Method Room Air 05/12/24 17:26 Medications Administered Medications: Generic Name Dose Route Start Last Admin Trade Name Sade PRN Reason Stop Dose Admin Sodium Chloride 1,000 mls @ 1,000 mls/hr 05/12/24 17:30 05/12/24 17:25 0.9 % Sodium Chloride 1000 Ml IV 05/12/24 18:29 1,000 mls/hr .Q1H OLGA Administration Discontinued Medications Generic Name Dose Route Start Last Admin Trade Name Sade PRN Reason Stop Dose Admin Sodium Chloride 500 mls @ 500 mls/hr 05/12/24 16:07 05/12/24 17:22 0.9 % Sodium Chloride 500 Ml IV 05/12/24 17:06 Infused .Q1H ONE Infusion Ibuprofen 400 mg 05/12/24 16:07 05/12/24 16:47 Ibuprofen 200 Mg Tablet PO 05/12/24 16:08 400 mg ONCE ONE Administration Medical Decision Making Lab Data Labs: Lab Results 05/12/24 05/12/24 05/12/24 Range/Units 15:45 16:15 16:32 WBC 6.13 (4.50-11.00) K/uL RBC 4.71 (4.00-5.20) m/uL Hgb 12.8 (12.0-16.0) gm/dL Hct 39.3 (33.0-51.0) % MCV 83 (80-100) fL MCH 27 (26-34) pg MCHC 33 (32-36) gm/dL RDW Coeff of Marisol 13.4 (11.5-15.5) % Plt Count 171 (140-440) K/uL Neut % (Auto) 79.8 H (42.0-72.0) % Lymph % (Auto) 11.7 L (20-44) % [place] % (Auto) 8.5 (0.0-11.0) % Eos % (Auto) 0.0 (0.0-7.0) % Baso % (Auto) 0.0 (0.0-3.0) % Neut # (Auto) 4.90 (1.7-7.0) K/uL Lymph # (Auto) 0.70 L (0.90-2.90) K/uL [place] # (Auto) 0.50 (0.00-0.90) K/UL Eos # (Auto) 0.00 (0.00-0.50) K/uL Baso # (Auto) 0.00 (0.00-0.30) K/uL Abs Immat Gran (auto) 0.00 (0.00-0.30) K/uL Imm/Tot Granulo (auto) 0.0 % Sodium 136 (135-149) mmol/L Potassium 4.2 (3.6-5.1) mmol/L Chloride 102 (96-114) mmol/L Carbon Dioxide 16 L (20-32) mmol/L Anion Gap 18 H (7-15) mEq/L BUN 11 (5-24) mg/dL Creatinine 0.6 (0.5-1.5) mg/dL Estimated Creat Clear 117.89 Estimated GFR 125 ml/min Glucose 76 (60-115) mg/dL Calcium 8.9 (8.4-10.6) mg/dL Urine Color Yellow (Yellow) Urine Appearance Clear (Clear) Urine pH 5.5 (5.0-8.5) Ur Specific [place] >= 1.030 (1.000-1.030) Urine Protein 2+ A (Negative) Urine Glucose (UA) Negative (Negative) Urine Ketones 4+ A (Negative) Urine Blood Trace-lysed A (Negative) Urine Nitrite Negative (Negative) Urine Bilirubin 1+ A (Negative) Urine Urobilinogen 0.2 (0.2-1.0) Ur Leukocyte Esterase Negative (Negative) Urine RBC 0-2 (0-2) Urine WBC 0-2 (0-5) Ur Squamous Epith Cells Moderate A (None-Few) Amorphous Sediment Moderate A (None) Urine Bacteria Moderate A (None) SARS-CoV-2 (PCR) Negative SARS-CoV-2 (Negative) Influenza Type A (PCR) POSITIVE PCR FLU A A (Negative) Influenza Type B (PCR) Negative PCR FLU B (Negative) RSV (PCR) Negative PCR RSV (Negative) Discharge Plan Discharge Clinical Impression: Influenza Patient Disposition: Home, Self-Care Condition: Stable Instructions: Influenza (DC) Additional Instructions: Your labs suggest that you are fairly dehydrated, so make sure that you are really working on hydration over the next couple of days. Otherwise, labs are reassuring. Your kidney function is perfect. Influenza usually lasts at least 5 and up to 10 days. You should be starting to improve by 10 days from onset of symptoms, if not you should be seen again. If at any time you have uncontrolled vomiting, significant respiratory difficulty, or other new symptoms, return to the emergency department. I do not think amoxicillin will be helpful, I would recommend against starting this medicine as it may cause side effects such as nausea or diarrhea. Prescriptions: No Action naproxen 500 mg tablet 500 mg PO BID Qty: 28 2RF Rx Instructions: Take twice daily for 1 week, then can take as needed. acetaminophen 500 mg Tablet 1,000 mg PO Q6H PRN (Reason: pain) Qty: 30 0RF Follow Up/Referrals: Roxy Jules MD [Primary Care Provider] - Stand Alone Forms: [employer] Info Instructions
[2024-05-12 16:32] LABS: Appearance Urine Clear (Clear); Bilirubin Urine 1+ (Negative); Blood Urine Trace-lysed (Negative); Color Urine Yellow (Yellow); Glucose Urine Negative (Negative); Ketones Urine 4+ (Negative); Leukocyte Esterase Urine Negative (Negative); Nitrite Urine Negative (Negative); Protein Urine 2+ (Negative); Specific Gravity Urine >= 1.030 (1.000-1.030); Urobilinogen Urine 0.2 (0.2-1.0); pH Urine 5.5 (5.0-8.5)
[2024-05-12 16:41] LABS: Amorphous Sediment Urine Moderate; Bacteria Urine Moderate; RBC Urine 0-2 (0-2); Squamous Epithelial Cell Urine Moderate (None-Few); WBC Urine 0-2 (0-5)
--- OUTSIDE RECORDS SUMMARY | 2024-05-12 16:45 | XMS_ITS | Continuity of Care Document ---
Author Organization [facility] Address [address] [place] [address] Phone Care Team Providers Care Manager Mobile Name Role Phone Bettie Fofana DO Unavailable [...] [address], [place], [address], [place] tel:[phone] [facility], No Information Selam Alexandre. [address], [place], [address], [place]. tel:[phone] Office/Outpa tient Visit, [place] [facility], [address], [place], [address], [place] tel:[phone] [facility], Raised antibody titerUrticari a Sep- 4 Selam Alexandre. [address], [address], [place], [address], [place]. tel:[phone] Referring Provider: Bettie Ortiz [address], [place], [address]. tel:[phone] Family History Family Member Type Diagnosis Age At Onset No Information Payers Payer name Insurance type Covered green party ID Authoralvina garcia(s) [facility] [id number] Social History Type Description Quantity Date Captured [...]
--- OUTSIDE RECORDS SUMMARY | 2024-05-12 16:45 | XMS_ITS | Clinical Summary ---
Author Organization [facility] Address [place], [place] [address] Care Team Providers Care Steam Fitter Name Role Phone Roxy Jules MD Primary Care Provider Roxy Jules MD Unavailable [phone] Halleyannel Yoselyn Coronelle Sabine INCOME TAX ADMINISTRATOR Unavailable Allergies No known active allergies Medications vit no.124/iron/foli c ( VITAMIN ORAL) Take by mouth. Active labetaloL (TRANDATE) 200 mg tabletIndication s:Hx of migraine headaches Take 1 Tablet (200 mg) by mouth two times daily. 90 Tablet 3 04/07/2023 Active amoxicillin 500 mg tabletIndication s:Acute bacterial infection of right middle ear Take 1 Tablet (500 mg) by mouth [...] VAGINAL PAVITHRA BERTHA Complications: Severe pre-eclampsia Name: Blount 1 Past Medical History: . Date GBS (group B Streptococcus carrier), +RV culture, currently Hx of preeclampsia, prior , currently Migraine headache Premature infant of 27 weeks gestation Prior complicated by PIH, antepartum, unspecified trimester Pyelonephritis Rh incompatibility Past Surgical History: . Laterality Date VAGINAL DELIVERY 2018 x2 VAGINAL DELIVERY 2019 WISDOM TEETH EXTRACTION 2017 Problems (from 03/10/23 to present) Problem Noted Resolved 06/02/2023 by Leticia Lozano RN No Leticia Lozano RN ....06/02/2023 12:59 [...] F VAGINAL PAVITHRA BERTHA 1 F VAGINAL PAVITHRA BERTHA Complications: Severe pre-eclampsia Create lab flowsheet [...] No problems associated with this episode. Kristen Maxwell RN.....01/06/2021 3:15 PM Encounters Date Type Department Care Team Description 05/12/2024 10:45 AM HORTICULTURE TEACHER Office Visit [facility] [address] [place] [address] Paz Leos, FORESTRY CREW CHIEF Fever (Fever, headache, plugged ears, sinus congestion, teeth pain, fatigue, weakness, kidney's hurt -I feel like I'm dehydrated/Recently diagnosed with lupus) 05/12/2024 Travel 05/05/2024 Travel 04/10/2024 3:20 PM HORTICULTURE TEACHER Orders Only [facility] [address] [place] [address] Lab 04/09/2024 Travel 03/22/2024 1:00 PM HORTICULTURE TEACHER Telemedicine [facility] [address] [place] [address] Yoselyn Nava, CHRISTOPHER Individual Therapy; Telehealth 03/21/2024 Travel 02/22/2024 Telephone [facility] [address] [place] [address] Yoselyn Nava, CHRISTOPHER Late Cancel Appointment (02/22/24) [...] on file Legal Sex Female 5:35 AM HORTICULTURE TEACHER Gender Identity Female 01/13/2021 7:59 AM CDT Sexual Orientation Not on file Obstetrics History Para Term AB IAB SAB Ectopic Multiple Livin g Live Births 5 4 3 1 1 0 1 0 4 4 Date Outcome GA Total Labor Labor/2nd/3rd Weight Sex Type Anes PTL Bertha A1 A5 Name Clin 2018 F VAGINA L PAVITHRA Livin g Blount Complications:Severe pre-ecl ampsia 2019 Term F VAGINA L PAVITHRA Livin g Kinza Complications:Pre-eclampsia SAB 2021 Term 38w 1d 3h 00m/ 3.57 kg (7 lb 14 oz) M [facility] None N Livin g 7 9 Valeriy as Thad Garcia MD Delivery Location:[facility] 2023 Term 38w 1d F VAGINA L PAVITHRA Livin g Korbel Last Filed Vital Signs Vital Sign Reading Time Taken Comments Blood Pressure 112/64 05/12/2024 10:18 AM HORTICULTURE TEACHER Pulse 110 05/12/2024 10:18 AM HORTICULTURE TEACHER Temperature 37.5 C (99.5 F) 05/12/2024 10:18 AM HORTICULTURE TEACHER Respiratory Rate 16 05/12/2024 10:18 AM HORTICULTURE TEACHER Oxygen Saturation 98% 05/12/2024 10:18 AM HORTICULTURE TEACHER Inhaled Oxygen Concentration - - Weight 54 kg (119 lb) 05/12/2024 10:18 AM HORTICULTURE TEACHER Height 168.9 cm (5' 6.5) 11/16/2022 7:01 AM CDT Body Mass Index 18.92 11/16/2022 7:01 AM CDT Plan of Treatment Upcoming Encounters Date Type Department Care Team (Late st Contact Info) Description 05/17/2024 2:00 PM HORTICULTURE TEACHER Orders Only [facility] [address] [place] [address] Lab, [facility] 05/24/2024 1:00 PM HORTICULTURE TEACHER Telemedicine [facility] [address] [place] [address] Yoselyn Nava, [facility] [address] [place], [place] [id number] Health Maintenance Due Date Last Done Comments [...] 16 Negative Negative 11/29/2023 4:41 PM CDT [facility] TRAL [facility]ATORY TYPE 18 Negative Negative 11/29/2023 4:41 PM CDT [facility] TRA LABORATORY OTHER HIGH RISK TYPES Negative Negative 11/29/2023 4:41 PM CDT [facility] Other (Cervical) Non-Blood / Unknown 11/24/2023 9:45 AM CDT 11/24/2023 3:57 PM CDT Narrative [facility] - 11/29/2023 4:41 PM CDT HPV types 16, 18, 31, 33, 35, 39, 45, 51, 52, 56, 58, 59, 66 and 68 DNA were undetectable or below the pre-set threshold. Methodology: Christian Alysha 4800 HPV Test Roxy Jules MD MICROBIOLOGY Final R esult [facility] [address] [place] [address], * ANTI HCV (12/17/2022 10:58 AM CDT) Pathologist [facility] HEPATITIS C ANTIBODY Non-Reacti ve Non-React christine 12/18/2022 12:42 PM CDT [facility] Comment:Please note, per www [...] Jules MD SEND OUTS Final R esult [facility] SENDOUT INTERNAL ZIP [address] [place] [id number] * ANTI HIV 1/2 (12/17/2022 10:58 AM CDT) HIV-1/HIV-2 SCREEN Non-Reacti ve Non-Reacti ve 12/18/2022 2:27 PM CDT [facility] TR[facility] Comment:HIV-1 p24 and HIV-1/ HIV-2 Ab Not Detected. Blood BLOOD SPECIMEN / Unknown Venipuncture / Unknown 12/17/2022 10:58 AM CDT 12/17/2022 10:59 AM CDT us Roxy Jules MD SEND OUTS Final R esult [facility] [address] [place] [address], [place] from Last 3 Months or Most Recently Relevant to Health Maintenance Additional Health Concerns Infection Onset Date Last Indicated Rule-Out COVID-19 05/12/2024 05/12/2024 Insurance Care Teams Steam Fitter Relationship Specialty Start Date End Date Roxy Jules MD [address] [place] [address] PCP - General Family Practice 09/28/23 Roxy Jules MD [address] [place] [address] Family Practice 09/28/23 Yoselyn Nava, [facility] [address] [place] [address] Psychology 03/22/24
[2024-05-12 16:46] LABS: Hematocrit 39.3 % (33.0-51.0); Hemoglobin* 12.8 gm/dL (12.0-16.0); Lymphocytes Percent Auto 11.7 % (20-44); Mean Corpuscular HGB Conc 33 gm/dL (32-36); Mean Corpuscular Hemoglobin 27 pg (26-34); Mean Corpuscular Volume 83 fL (80-100); Monocytes Percent Auto 8.5 % (0.0-11.0); Neutrophils Percent Auto 79.8 % (42.0-72.0); Platelet Count* 171 K/uL (140-440); RDW Coefficient of Variation % 13.4 % (11.5-15.5); Red Blood Count 4.71 m/uL (4.00-5.20); White Blood Count* 6.13 K/uL (4.50-11.00)
[2024-05-12] MEDS: IBUPROFEN 200 MG TABLET 400 MG PO (16:47)
[2024-05-12] MEDS: 0.9 % SODIUM CHLORIDE 500 ML 500 ML IV (16:48)
[2024-05-12 16:55] LABS: PCR FLU A POSITIVE PCR FLU A (Negative); PCR FLU B Negative PCR FLU B (Negative); PCR RSV Negative PCR RSV (Negative); SARS PCR* Negative SARS-CoV-2 (Negative)
[2024-05-12 17:09] LABS: Slide Review Reflex No
[2024-05-12] MEDS: 0.9 % SODIUM CHLORIDE 1000 ml 1,000 ML IV (17:25)
[2024-05-12 17:26] VITALS: BP 109/64; PULSE 100; RESP 14; O2SAT 96
[2024-05-12 17:40] LABS: Chloride* 102 mmol/L (96-114)
[2024-05-12 17:41] LABS: Potassium* 4.2 mmol/L (3.6-5.1); Sodium* 136 mmol/L (135-149)
[2024-05-12 17:43] LABS: Creatinine* 0.6 mg/dL (0.5-1.5); Est. Creatinine Clearance* 117.89; Estimated Glomerular Filt Rate 125 ml/min
[2024-05-12 17:44] LABS: Anion Gap 18 mEq/L (7-15); Blood Urea Nitrogen* 11 mg/dL (5-24); Calcium* 8.9 mg/dL (8.4-10.6); Carbon Dioxide* 16 mmol/L (20-32); Glucose* 76 mg/dL (60-115)
[2024-05-12 18:13] LABS: C Reactive Protein* 12.4 mg/dL (0.5-1.0)
[2024-05-12 18:46] VITALS: BP 104/72; PULSE 91; RESP 12; TEMP 38.2
== END 2024-05-12 18:47 | disposition home or self-care (01) ==
PROVIDERS: Emergency Provider Emergency Medicine; PCP Family Medicine
DX: J10.1 Influenza due to other identified influenza virus with other respiratory manifestations (principal)
CPT/HCPCS: 36415; 80048; 81001; 85025; 86140; 87086; 87631; 99283; 99284; A9270; J7030